=== PATIENT | female | born 1960 | race Caucasian/White ===

== ENCOUNTER 2017-09-28 12:41 | Emergency (ER) | payer BC ==
[2017-09-28 13:35] VITALS: BP 140/85
--- NOTE | 2017-09-28 14:12 | ED ---
Skin Complaint - HPI Summary HPI Summary: 57yo WF c/o red flat skin lesion (s/p insect bite appearing lesion) and here to check if it is a lyme rash on LLE - History of Current Complaint Chief Complaint: UCSkin Time Seen by Provider: 09/28/17 13:56 Stated Complaint: INSECT BITE ON LFT LEG Hx Obtained From: Patient Hx From Patient Unobtainable Due To: Other Hx Last Menstrual Period: One year ago (August 2014) Onset/Duration: Started Days Ago Skin Exposure Onset/Duration: Days Ago Onset Severity: Moderate Pain Intensity: 0 Skin Location: Discrete, Leg Character: Redness, Raised - Allergy/Home Medications Allergies/Adverse Reactions: Allergies Allergy/AdvReac Type Severity Reaction Status Date / Time azithromycin Allergy Anaphylatic Verified 09/28/17 13:38 Shock erythromycin base Allergy Anaphylatic Verified 09/28/17 13:38 Shock lactose Allergy GI Upset Verified 09/28/17 13:38 latex Allergy Blisters Verified 09/28/17 13:38 Penicillins Allergy Unknown Verified 09/28/17 13:38 Reaction Details Sulfa (Sulfonamide Allergy Hives Verified 09/28/17 13:38 Antibiotics) vancomycin Allergy Anaphylatic Verified 09/28/17 13:38 Shock ANTIBIOTIC AdvReac See Comment Uncoded 09/09/15 08:24 Home Medications: Home Medications Fexofenadine (NF) [Alondra (NF)] 60 mg PO DAILY 09/28/17 [History Confirmed 05/06] Ibuprofen 400 mg PO DAILY 09/28/17 [History Confirmed 09/28/17] PMH/Surg Hx/FS Hx/Imm Hx Previously Healthy: Yes Endocrine/Hematology History: Reports: Hx Thyroid Disease - Hypothyroidism Denies: Hx Anticoagulant Therapy, Hx Diabetes Cardiovascular History: Reports: Hx Hypertension Denies: Hx Congestive Heart Failure, Hx Deep Vein Thrombosis, Hx Myocardial Infarction, Hx Pacemaker/ICD Respiratory History: Reports: Hx Asthma Denies: Hx Chronic Obstructive Pulmonary Disease (COPD), Hx Lung Cancer, Hx Pneumonia, Hx Pulmonary Embolism GI History: Reports: Hx Ulcer - "I had an ulcer 30 years ago." Denies: Hx Gall Bladder Disease, Hx Gastrointestinal Bleed, Hx Urosepsis History: Denies: Hx Kidney Stones, Hx Renal Disease Neurological History: Denies: Hx Dementia, Hx Migraine, Hx Seizures, Hx Transient Ischemic Attacks (TIA) Psychiatric History: Denies: Hx Anxiety, Hx Depression, Hx Schizophrenia, Hx Bipolar Disorder - Cancer History Cancer Type, Location and Year: [facility] Hx Chemotherapy: No Hx Radiation Therapy: No - Surgical History Surgery Procedure, Year, and Place: MOUTH , HAND AND FOOT SURGERIES. WIDE EXCISION [facility] Infectious Disease History: No Infectious Disease History: Denies: Traveled Outside the [place] in Last 30 Days - Social History Alcohol Use: Occasionally Substance Use Type: Reports: None Smoking Status (MU): Never Smoked Tobacco Review of Systems Constitutional: Negative Eyes: Negative ENT: Negative Cardiovascular: Negative Respiratory: Negative Gastrointestinal: Negative Musculoskeletal: Negative Positive: Other - insect bite with surrounding redness All Other Systems Reviewed And Are Negative: Yes Physical Exam Triage Information Reviewed: Yes Vital Signs On Initial Exam: Initial Vitals Temp Pulse Resp BP Pulse Ox 36.8 C 72 17 140/85 98 09/28/17 13:26 09/28/17 13:26 09/28/17 13:26 09/28/17 13:26 09/28/17 13:26 Vital Signs Reviewed: Yes Appearance: Positive: Well-Appearing Skin: Positive: Warm, Dry, Other - LLE 1x3 cm nonblanching erythematous macular lesion with small dark center of a insect bite puncture moise, no d/c or swelling Head/Face: Positive: Normal Head/Face Inspection Eyes: Positive: Normal, EOMI ENT: Positive: Normal ENT inspection Neck: Positive: Supple Respiratory/Lung Sounds: Positive: Clear to Auscultation Cardiovascular: Positive: Normal Abdomen Description: Positive: Nontender Musculoskeletal: Positive: Normal Neurological: Positive: Normal AVPU Assessment: Alert Diagnostics - Vital Signs Vital Signs Temp Pulse Resp BP Pulse Ox 09/28/17 13:26 36.8 C 72 17 140/85 98 - Laboratory Lab Statement: Any lab studies that have been ordered have been reviewed, and results considered in the medical decision making process. Course/Dx - Course Course Of Treatment: Does not appear to be erythema migrans(which pt is worried about) advised to monitor and return to clinic if change in shape or size - Diagnoses Provider Diagnoses: Insect bite (nonvenomous), left lower leg, initial encounter Discharge - Sign-Out/Discharge Documenting (check all that apply): Discharge/Admit/Transfer - Discharge Plan Condition: Stable Disposition: HOME Patient Education Materials: Insect Bite or Sting (ED) Referrals: Analisa Christopher MD [Primary Care Provider] - - Billing Disposition and Condition Condition: STABLE Disposition: HOME
== END 2017-09-28 14:11 | disposition home or self-care (01) ==
LOC: UCCORT 12:41
DX: S80.862A Insect bite (nonvenomous), left lower leg, initial encounter (principal); W57.XXXA Bitten or stung by nonvenomous insect and other nonvenomous arthropods, initial encounter; Y93.9 Activity, unspecified; Y92.9 Unspecified place or not applicable; Z88.0 Allergy status to penicillin; Z88.2 Allergy status to sulfonamides; Z88.1 Allergy status to other antibiotic agents; Z91.011 Allergy to milk products
CPT/HCPCS: 99211; G0463

== ENCOUNTER 2018-10-29 07:35 | Emergency (ER) | payer BC ==
[2018-10-29 07:57] VITALS: BP 143/84
--- NOTE | 2018-10-29 08:17 | UC ---
Skin Complaint HPI - HPI Summary HPI Summary: 58-year-old female comes in with a chief complaint of a rash on the inside of the right upper arm. She notes that this morning when she was showering. It does not itch. She has a lot of gardening and she is worried that it is a rash associated with a tick bite. Patient feels well no fevers no chills no bodyaches. Patient has not seen a tick on her. - History of Current Complaint Chief Complaint: UCSkin Time Seen by Provider: 10/29/18 08:03 Stated Complaint: SKIN COMPLAINT Hx Last Menstrual Period: One year ago (August 2014) Pain Intensity: 0 - Allergy/Home Medications Allergies/Adverse Reactions: Allergies Allergy/AdvReac Type Severity Reaction Status Date / Time azithromycin Allergy Anaphylatic Verified 09/28/17 13:38 Shock erythromycin base Allergy Anaphylatic Verified 09/28/17 13:38 Shock lactose Allergy GI Upset Verified 09/28/17 13:38 latex Allergy Blisters Verified 09/28/17 13:38 Penicillins Allergy Unknown Verified 09/28/17 13:38 Reaction Details Sulfa (Sulfonamide Allergy Hives Verified 09/28/17 13:38 Antibiotics) vancomycin Allergy Anaphylatic Verified 09/28/17 13:38 Shock ANTIBIOTIC AdvReac See Comment Uncoded 09/09/15 08:24 Home Medications: Home Medications Cholecalciferol TAB* [Vitamin D TAB*] 1,000 unit PO DAILY 10/29/18 [History Confirmed 10/29/18] PMH/Surg Hx/FS Hx/Imm Hx Previously Healthy: Yes Endocrine History: Hypothyroidism, Dyslipidemia Respiratory History: Asthma Other History Of: Negative For: HIV, Hepatitis B, Hepatitis C, Anticoagulant Therapy - Surgical History Surgical History: Yes Surgery Procedure, Year, and Place: MOUTH , HAND AND FOOT SURGERIES. WIDE EXCISION [facility]. cataracts - Family History Known Family History: Positive: Non-Contributory - Social History Alcohol Use: Rare Substance Use Type: None Smoking Status (MU): Never Smoked Tobacco - Immunization History Most Recent Influenza Vaccination: February 2015 Most Recent Pneumonia Vaccination: February 2015 Review of Systems All Other Systems Reviewed And Are Negative: Yes Constitutional: Positive: Negative Skin: Positive: Other - see hpi Eyes: Positive: Negative ENT: Positive: Negative Respiratory: Positive: Negative Cardiovascular: Positive: Negative Gastrointestinal: Positive: Negative Motor: Positive: Negative Neurovascular: Positive: Negative Musculoskeletal: Positive: Negative Neurological: Positive: Negative Psychological: Positive: Negative Is Patient Immunocompromised?: No Physical Exam Triage Information Reviewed: Yes Appearance: Well-Appearing, No Pain Distress, Well-Nourished Vital Signs: Initial Vital Signs Temp 98.4 F 10/29/18 07:52 Pulse 72 10/29/18 07:52 Resp 18 10/29/18 07:52 BP 143/84 10/29/18 07:52 Pulse Ox 99 10/29/18 07:52 Vital Signs Reviewed: Yes Eye Exam: Normal Eyes: Positive: Conjunctiva Clear ENT: Negative: Nasal congestion, Muffled voice, Hoarse voice Neck: Positive: Supple Respiratory: Positive: Lungs clear, Normal breath sounds, No respiratory distress Cardiovascular: Positive: RRR Musculoskeletal Exam: Normal Musculoskeletal: Positive: Strength Intact, ROM Intact Neurological Exam: Normal Neurological: Positive: Alert, Muscle Tone Normal Psychological Exam: Normal Psychological: Positive: Age Appropriate Behavior Skin: Positive: Other - Rt inner upper arm. Erythematous blanching rash; #3 circular 1.5cm flat. Course/Dx - Course Course Of Treatment: Discussed Erythema migrans and lyme Dx Sx and treatment. The rash is not obviously erythema migrans. The patient prefers to be treated with ABx at this time. - Diagnoses Provider Diagnosis: Rash Discharge - Sign-Out/Discharge Documenting (check all that apply): Patient Departure All imaging exams completed and their final reports reviewed: No Studies - Discharge Plan Condition: Stable Disposition: HOME Prescriptions: DOXYcycline CAP(*) [DOXYcycline 100MG CAP(*)] 100 mg PO BID #20 cap Fluconazole 150 MG TAB* [Diflucan 150 MG TAB*] 150 mg PO ONCE #2 tablet Patient Education Materials: Lyme Disease (ED), Acute Rash (ED) Referrals: Analisa Christopher MD [Primary Care Provider] - Additional Instructions: FOLLOW UP WITH YOUR DOCTOR IF NOT COMPLETELY IMPROVED. GET RECHECKED SOONER IF YOUR CONDITION WORSENS OR ANY QUESTIONS OR CONCERNS. - Billing Disposition and Condition Condition: STABLE Disposition: Home
== END 2018-10-29 08:24 | disposition home or self-care (01) ==
LOC: UCCORT 07:35
DX: R21 Rash and other nonspecific skin eruption (principal)
CPT/HCPCS: 99212; G0463

== ENCOUNTER 2018-12-30 18:46 | Emergency (ER) | payer BC ==
[2018-12-30 19:51] VITALS: BP 159/98
--- NOTE | 2018-12-30 20:05 | ED ---
Skin Complaint - HPI Summary HPI Summary: 58 yr old with redness around a skin biopsy site lower right medial leg. The patient had skin biopsies of right thigh and right lower leg two weeks ago. She took bandaide off two days ago. Today this afternoon noted to have redness to the right lower leg, and lines drawn by sister where redness were show the redness has retreated substantially from earlier. ABout 90 percent gone in the past three hours. She has no fever, and no pain. - History of Current Complaint Chief Complaint: UCSkin Time Seen by Provider: 12/30/18 19:43 Stated Complaint: SKIN ISSUE LEG Hx Last Menstrual Period: One year ago (August 2014) Pain Intensity: 0 - Allergy/Home Medications Allergies/Adverse Reactions: Allergies Allergy/AdvReac Type Severity Reaction Status Date / Time azithromycin Allergy Anaphylatic Verified 12/30/18 19:43 Shock bacitracin Allergy Localized Verified 12/30/18 19:43 [From Neosporin Discharge ([id number])] erythromycin base Allergy Anaphylatic Verified 12/30/18 19:43 Shock lactose Allergy GI Upset Verified 12/30/18 19:43 latex Allergy Blisters Verified 12/30/18 19:43 neomycin Allergy Localized Verified 12/30/18 19:43 [From Neosporin Discharge ([id number])] Penicillins Allergy Unknown Verified 12/30/18 19:43 Reaction Details polymyxin B Allergy Localized Verified 12/30/18 19:43 [From Neosporin Discharge ([id number])] Sulfa (Sulfonamide Allergy Hives Verified 12/30/18 19:43 Antibiotics) vancomycin Allergy Anaphylatic Verified 12/30/18 19:43 Shock ANTIBIOTIC AdvReac See Comment Uncoded 12/30/18 19:43 Home Medications: Home Medications Levothyroxine TAB* [Synthroid TAB*] 112 mcg PO DAILY 12/30/18 [History Confirmed 12/30/18] Mometasone NASAL (NF) [Nasonex (NF)] 2 spray BOTH NARES DAILY PRN 12/30/18 [ History Confirmed 12/30/18] Vitamin B Complex TAB* [B Complex-50*] 1 tab PO DAILY 12/30/18 [History Confirmed 12/30/18] PMH/Surg Hx/FS Hx/Imm Hx Endocrine/Hematology History: Reports: Hx Thyroid Disease - Hypothyroidism Denies: Hx Anticoagulant Therapy, Hx Diabetes Cardiovascular History: Reports: Hx Hypertension Denies: Hx Congestive Heart Failure, Hx Deep Vein Thrombosis, Hx Myocardial Infarction, Hx Pacemaker/ICD Respiratory History: Reports: Hx Asthma Denies: Hx Chronic Obstructive Pulmonary Disease (COPD), Hx Lung Cancer, Hx Pneumonia, Hx Pulmonary Embolism GI History: Reports: Hx Ulcer - ~ Denies: Hx Gall Bladder Disease, Hx Gastrointestinal Bleed, Hx Urosepsis History: Denies: Hx Kidney Stones, Hx Renal Disease Neurological History: Denies: Hx Dementia, Hx Migraine, Hx Seizures, Hx Transient Ischemic Attacks (TIA) Psychiatric History: Denies: Hx Anxiety, Hx Depression, Hx Schizophrenia, Hx Bipolar Disorder - Cancer History Cancer Type, Location and Year: [facility] Hx Chemotherapy: No Hx Radiation Therapy: No - Surgical History Surgery Procedure, Year, and Place: MOUTH , HAND AND FOOT SURGERIES. WIDE EXCISION [facility]. cataracts Infectious Disease History: No Infectious Disease History: Denies: Traveled Outside the [place] in Last 30 Days - Family History Known Family History: Positive: Non-Contributory - Social History Occupation: Employed Full-time Alcohol Use: Rare Substance Use Type: Reports: None Smoking Status (MU): Never Smoked Tobacco Review of Systems Constitutional: Negative Positive: Other - right leg redness around skin biopsy site All Other Systems Reviewed And Are Negative: Yes Physical Exam Triage Information Reviewed: Yes Vital Signs On Initial Exam: Initial Vitals Temp Pulse Resp BP Pulse Ox 97.9 F 70 16 159/98 100 12/30/18 19:39 12/30/18 19:39 12/30/18 19:39 12/30/18 19:39 12/30/18 19:39 Vital Signs Reviewed: Yes Appearance: Positive: Well-Appearing, No Pain Distress Skin: Positive: Other - scant redness about 1 cm inferior to the skin biopsy. over 90 percent gone from just a couple hours ago. No drainage from the biopsy site. Head/Face: Positive: Normal Head/Face Inspection Eyes: Positive: EOMI ENT: Positive: Normal ENT inspection Neck: Positive: Nontender Respiratory/Lung Sounds: Positive: Clear to Auscultation, Breath Sounds Present Cardiovascular: Positive: Pulses are Symmetrical in both Upper and Lower Extremities Musculoskeletal: Positive: Strength/ROM Intact. Negative: Edema Left, Edema Right Neurological: Positive: Sensory/Motor Intact, Alert, Oriented to Person Place, Time Diagnostics - Vital Signs Vital Signs Temp Pulse Resp BP Pulse Ox 12/30/18 19:39 97.9 F 70 16 159/98 100 - Laboratory Lab Statement: Any lab studies that have been ordered have been reviewed, and results considered in the medical decision making process. Course/Dx - Course Course Of Treatment: 58 yr old with post biopsy redness that is going away. WOuld leave alone now, and follow up with her doctor tomorrow who did her surgery. She is comfortable and will call them tomorrow. - Diagnoses Provider Diagnoses: Skin redness or inflammation, Hypertension Discharge - Sign-Out/Discharge Documenting (check all that apply): Patient Departure All imaging exams completed and their final reports reviewed: No Studies - Discharge Plan Condition: Good Disposition: HOME Patient Education Materials: Skin Biopsy (DC), Hypertension (ED) Referrals: Analisa Christopher MD [Primary Care Provider] - - Billing Disposition and Condition Condition: GOOD Disposition: Home
== END 2018-12-30 20:14 | disposition home or self-care (01) ==
LOC: UCCORT 18:46
DX: L98.9 Disorder of the skin and subcutaneous tissue, unspecified (principal); I10 Essential (primary) hypertension; Z87.2 Personal history of diseases of the skin and subcutaneous tissue; Z98.890 Other specified postprocedural states; E03.9 Hypothyroidism, unspecified
CPT/HCPCS: 99212; G0463